=== PATIENT | male | born 1985 | race Caucasian/White ===

== ENCOUNTER 2023-05-30 02:43 | Emergency (ER) | payer OTHER ==
[2023-05-30 03:08] VITALS: BMI 29.2
[2023-05-30] MEDS ORDERED: SODIUM CHLORIDE 1,000 ML IV STA (04:44)
[2023-05-30 05:42] LABS: BASO % 0.6 % (0-2.0); EOS % 1.9 % (0-4.5); HEMATOCRIT 43.6 % (35.4-49); HEMOGLOBIN 14.8 GM/dL (11.7-16.9); LYMPH % 41.9 % (8-40); MCH 32.4 pg (25.7-33.7); MCHC 33.9 g/dl (32.0-35.9); MEAN CELL VOLUME 95.6 fl (80-96); MEAN PLT VOLUME 8.6 fl (7.5-11.1); MONO % 10.8 % (3.8-10.2); NEUT % 44.8 % (42.8-82.8); PLATELET COUNT 235 10^3/uL (134-434); RBC 4.56 M/mm3 (4.00-5.60); WHITE BLOOD COUNT 7.3 K/mm3 (4.0-10.0)
[2023-05-30 05:46] LABS: POTASSIUM 4.7 mmol/L (3.5-5.1)
[2023-05-30 05:48] LABS: CALCIUM 9.4 mg/dL (8.5-10.1)
[2023-05-30 05:49] LABS: ALBUMIN 3.7 g/dl (3.4-5.0)
[2023-05-30 05:52] LABS: CREATININE 0.7 mg/dL (0.55-1.3)
[2023-05-30 05:53] LABS: TOT PROT 7.4 g/dl (6.4-8.2)
[2023-05-30 05:54] LABS: BILIRUBIN,TOTAL 0.3 mg/dL (0.2-1)
[2023-05-30 08:38] VITALS: BP 121/58; PULSE 59; RESP 20; TEMP 98.2
== END 2023-05-30 08:54 | disposition home or self-care (01) ==
LOC: JER 02:43
PROC: 3E0337Z Introduction of Electrolytic and Water Balance Substance into Peripheral Vein, Percutaneous Approach (ICD-10-PCS; principal; 2023-05-30)
DX: G40.909 Epilepsy, unspecified, not intractable, without status epilepticus (principal); R53.1 Weakness; R53.81 Other malaise; Z20.822 Contact with and (suspected) exposure to COVID-19
CPT/HCPCS: 0241U-QW; 36415; 71045-TC-FY; 80053; 80177; 84484; 85025; 93005; 93010; 96360; 99285-25

== ENCOUNTER 2023-10-09 07:57 | Emergency (ER) | payer OTHER ==
[2023-10-09 08:20] VITALS: RESP 16; BMI 32.8
[2023-10-09 08:41] LABS: BASO % 0.5 % (0-2.0); EOS % 2.1 % (0-4.5); HEMATOCRIT 43.1 % (35.4-49); HEMOGLOBIN 14.7 GM/dL (11.7-16.9); MCH 32.6 pg (25.7-33.7); MCHC 34.2 g/dl (32.0-35.9); MEAN CELL VOLUME 95.5 fl (80-96); MEAN PLT VOLUME 7.9 fl (7.5-11.1); MONO % 12.7 % (3.8-10.2); NEUT % 51.7 % (42.8-82.8); PLATELET COUNT 216 10^3/uL (134-434); RBC 4.51 M/mm3 (4.00-5.60); RDW 13.1 % (11.9-15.9); WHITE BLOOD COUNT 4.1 K/mm3 (4.0-10.0)
[2023-10-09 09:02] LABS: CALCIUM 9.2 mg/dL (8.5-10.1)
[2023-10-09 09:03] LABS: ALBUMIN 3.7 g/dl (3.4-5.0); BLOOD UREA NITROGEN 10.5 mg/dL (7-18)
[2023-10-09 09:06] LABS: CREATININE 0.9 mg/dL (0.55-1.3)
[2023-10-09 09:08] LABS: BILIRUBIN,TOTAL 0.3 mg/dL (0.2-1)
[2023-10-09 09:15] LABS: LACTIC ACID 3.3 mmol/L (0.4-2.0)
[2023-10-09] MEDS ORDERED: DIVALPROEX SODIUM 250 MG TABLET E.C. ONE (10:06)
[2023-10-09] MEDS: DIVALPROEX SODIUM 250 MG TABLET E.C. PO ONE (10:08)
[2023-10-09] MEDS: levETIRAcetam 500 MG/5 ML INJECTION VIAL IVPB ONE (10:13)
[2023-10-09] MEDS: SODIUM CHLORIDE 0.9% 500 ML INFUS.BAG IV ONE (11:20)
[2023-10-09 12:28] LABS: EPI CELLS >36 /uL (0-25.1); HYALINE CASTS 14 /uL (0-3.1); URINE APPEARANCE CLOUDY; URINE BACTERIA 18 /uL (0-1359); URINE BILIRUBIN NEGATIVE (NEGATIVE); URINE COLOR YELLOW; URINE GLUCOSE (UA) NEGATIVE (NEGATIVE); URINE KETONE TRACE (NEGATIVE); URINE LEUK ESTERASE NEGATIVE (NEGATIVE); URINE NITRITE NEGATIVE (NEGATIVE); URINE PROTEIN 1+ (NEGATIVE); URINE RBC 12 /uL (0-23.9); URINE UROBILINOGEN 0.2 mg/dL (0.2-1.0)
[2023-10-09 13:04] LABS: URINE WBC 66 /uL (0-25.8)
[2023-10-09 13:08] VITALS: BP 137/72; PULSE 75; TEMP 97.8
== END 2023-10-09 13:09 | disposition home or self-care (01) ==
LOC: JER 07:57
DX: G40.89 Other seizures (principal); R53.1 Weakness; R41.82 Altered mental status, unspecified
CPT/HCPCS: 36415; 70450-TC; 71045-TC-FY; 72125-TC; 80053; 80177; 81003; 83605; 85025; 87086; 93005; 93010; 99285-25